=== PATIENT | male | born 1965 | race Two or more races ===

== ENCOUNTER 2020-03-07 18:12 | Inpatient (IN) | payer OTHER ==
[~2020-03-07] VITALS: Ht 182.9 cm; Wt 88.8 kg
[2020-03-07] MEDS ORDERED: LORazepam 2 MG TABLET PO ONE (19:15)
[2020-03-07] MEDS ORDERED: ONDANSETRON HCL 4 MG TABLET PO ONE (19:15)
[2020-03-07 19:25] LABS: BASOPHILS % (AUTO) 0.4 % (0.0-2.0); EOSINOPHILS % (AUTO) 0.1 % (1.0-6.0); HEMATOCRIT 45.4 % (41-53); HEMOGLOBIN 15.5 g/dL (13.5-17.5); LYMPHOCYTES % (AUTO) 27.9 % (22.0-44.0); MEAN CORPUSCULAR HEMOGLOBIN 29.5 pg (26.0-34.0); MEAN CORPUSCULAR HGB CONC 34.1 G/dL (31.0-37.0); MEAN CORPUSCULAR VOLUME 87 fL (80-100); MONOCYTES # (AUTO) 0.7 K/uL (0.1-1.0); MONOCYTES % (AUTO) 6.6 % (2.0-9.0); NEUTROPHILS # (AUTO) 6.9 K/uL (1.8-7.7); PLATELET COUNT (AUTO) 390 K/uL (150-450); RED BLOOD CELL COUNT(AUTO) 5.24 MIL/uL (4.50-5.90); RED CELL DISTRIBUTION WIDTH 13.1 % (11.5-14.5)
[2020-03-07 19:34] LABS: ANION GAP 8 mmol/L (8-16); CALCIUM, TOTAL 9.4 mg/dL (8.8-10.5); CARBON DIOXIDE 29 mmol/L (22-29); CHLORIDE 97 mmol/L (98-107); CREATININE 0.74 mg/dL (0.60-1.30); GLOMERULAR FILTR. RATE CALC > 60 mL/min (>60); GLUCOSE,RANDOM 230 mg/dL (70-110); POTASSIUM 3.4 mmol/L (3.5-5.1); SODIUM SERUM 134 mmol/L (136-145); UREA NITROGEN, BLOOD 7 mg/dL (7-18)
[2020-03-07 19:41] LABS: ALANINE AMINOTRANSFERASE 34 U/L (12-78); ALBUMIN 3.8 g/dL (3.4-5.0); ALKALINE PHOSPHATASE 117 U/L (46-116); ASPARTATE AMINOTRANSFERASE 21 U/L (15-37); BILIRUBIN,TOTAL 0.6 mg/dL (0.1-1.0); LIPASE 69 U/L (73-393); TOTAL PROTEIN, SERUM 7.5 g/dL (6.4-8.2)
[2020-03-07 20:09] LABS: ACETAMINOPHEN < 2 mcg/mL (10-30); SALICYLATE < 2.8 mg/dL (2.8-20.0)
[2020-03-07] MEDS ORDERED: POTASSIUM CHLORIDE 20 MEQ ER TABLET PO ONE (20:15)
[2020-03-07] MEDS ORDERED: LORazepam 1 MG TABLET PO ONE (20:15)
[2020-03-07] MEDS ORDERED: LORazepam 2 MG TABLET PO PRN (20:45)
[2020-03-07] MEDS ORDERED: DIAZEPAM 5 MG/ML 2 ML SYRINGE IVP ONE (20:45)
[2020-03-07] MEDS: FAMOTIDINE 10 MG/ML 2 ML VIAL IVP SCH (21:23)
[2020-03-07 21:45] VITALS: BP 171/87
[2020-03-07] MEDS: 1: MAGNESIUM SULFATE 2 GM, MVI, ADULT NO.1 WITH VIT K 10 ML, THIAMINE 100 MG, FOLIC ACID IV SCH ×5 (21:56)
[2020-03-08 00:45] VITALS: BP 117/93
[2020-03-08] MEDS ORDERED: DIAZEPAM 5 MG/ML 2 ML SYRINGE IVP ONE (02:30)
[2020-03-08 04:45] VITALS: BP 151/98
[2020-03-08] MEDS ORDERED: INSULIN LISPRO 100 UNITS/ML SQ PRN (05:15)
[2020-03-08] MEDS ORDERED: DEXTROSE 50%-WATER 25 GM/50 ML SYRINGE IVP PRN (05:15)
[2020-03-08] MEDS ORDERED: SODIUM CHLORIDE 0.9% 1,000 ML ONE (06:10)
[2020-03-08] MEDS: 1: MAGNESIUM SULFATE 2 GM, MVI, ADULT NO.1 WITH VIT K 10 ML, THIAMINE 100 MG, FOLIC ACID IV SCH ×5 (06:15)
[2020-03-08] MEDS ORDERED: INSULIN GLARGINE,HUM.REC.ANLOG 100 UNITS/ML SQ SCH (07:00)
[2020-03-08] MEDS ORDERED: LORazepam 2 MG TABLET PO PRN (07:00)
[2020-03-08 07:40] LABS: GLUCOMETER DEV NAME(LOC) 5S.1; GLUCOSE,POINT OF CARE 211 MG/DL (70-110)
[2020-03-08 08:26] LABS: GLUCOSE,POINT OF CARE 224 MG/DL (70-110)
[2020-03-08 08:48] LABS: AMPHET/METH SCREEN,URINE POSITIVE (NEGATIVE); BARBITURATE SCREEN, URINE NEGATIVE (NEGATIVE); BENZODIAZEPINES SCREEN,URINE NEGATIVE (NEGATIVE); CANNABINOID SCREEN,URINE POSITIVE (NEGATIVE); COCAINE SCREEN,URINE NEGATIVE (NEGATIVE); METHADONE SCREEN, URINE NEGATIVE (NEGATIVE); OPIATE SCREEN,URINE POSITIVE (NEGATIVE)
[2020-03-08 08:49] LABS: PHENCYCLIDINE SCREEN,URINE NEGATIVE (NEGATIVE)
[2020-03-08] MEDS ORDERED: LORazepam 2 MG TABLET PO SCH (09:00)
[2020-03-08] MEDS ORDERED: ENOXAPARIN SODIUM 40 MG/0.4 ML PF SYRINGE SQ SCH (09:00)
[2020-03-08] MEDS: FAMOTIDINE 10 MG/ML 2 ML VIAL IVP SCH (09:32)
[2020-03-08 09:34] VITALS: BP 156/93
[2020-03-08 11:42] VITALS: BP 136/96
[2020-03-08] MEDS ORDERED: LORazepam 2 MG/ML VIAL IVP PRN (11:45)
[2020-03-08] MEDS ORDERED: MAGNESIUM OXIDE 400 MG TABLET PO PRN (11:45)
[2020-03-08] MEDS ORDERED: MAGNESIUM SULFATE 2 GM/WATER 50 ML IV PRN (11:45)
[2020-03-08] MEDS ORDERED: POTASSIUM CHLORIDE 20 MEQ ER TABLET PO PRN (11:45)
[2020-03-08] MEDS ORDERED: POTASSIUM CHL 10 MEQ/WATER 50 ML IV PRN (11:45)
[2020-03-08] MEDS ORDERED: MAGNESIUM SULFATE 4 GM/WATER 100 ML IV PRN (11:45)
[2020-03-08 13:14] LABS: ALBUMIN 3.4 g/dL (3.4-5.0); MAGNESIUM 1.9 mg/dL (1.80-2.40)
[2020-03-08 14:01] LABS: GLUCOMETER DEV NAME(LOC) 5S.1; GLUCOSE,POINT OF CARE 278 MG/DL (70-110)
[2020-03-09] MEDS ORDERED: MULTIVITAMINS WITH MINERALS, THERAPEUTIC TABLET PO SCH (09:00)
[2020-03-10] MEDS ORDERED: LORazepam 1 MG TABLET PO PRN (07:00)
[2020-03-10] MEDS ORDERED: LORazepam 1 MG TABLET PO SCH (09:00)
[2020-03-11] MEDS ORDERED: LORazepam 1 MG TABLET PO PRN (07:00)
== END 2020-03-08 16:05 | disposition left against medical advice (07) | DRG 894 ==
LOC: EMS 18:13 → 5S 20:00
PROVIDERS: ADMIT Internal Medicine; ATTEND Internal Medicine
DX: F10.231 Alcohol dependence with withdrawal delirium (principal); E87.1 Hypo-osmolality and hyponatremia; E11.65 Type 2 diabetes mellitus with hyperglycemia; E87.6 Hypokalemia; F19.10 Other psychoactive substance abuse, uncomplicated; I10 Essential (primary) hypertension; F11.10 Opioid abuse, uncomplicated; F17.210 Nicotine dependence, cigarettes, uncomplicated
CPT/HCPCS: 83036; 83735; 93005; G0480; G0481; J1650; J1815; J3411; J3475; J3490; J7030; Q0162